=== PATIENT | male | born 1955 | race Asian ===

== ENCOUNTER 2020-04-03 16:01 | Inpatient (IN) | payer OTHER, SELFPAY ==
[~2020-04-03] VITALS: Ht 172.7 cm; Wt 88.5 kg
[2020-04-03 16:01] VITALS: BP_SYST 125
--- NOTE | 2020-04-03 16:06 | NUR ---
Patient triaged and placed in Surge Tent. VSS and patient appears in no acute distress at this time. Awaiting available bed, and MD notified of need for MSE.
--- NOTE | 2020-04-03 16:07 | NUR ---
Patient came from home for evaluation of COVID-19 symptoms. Patient reports that his niece tested positive 2 weeks ago and has been hospitalized. He is complaining of loss of taste & smell, fever, labored breathing, and diarrhea since last .
--- NOTE | 2020-04-03 16:38 | NUR ---
Patient to ER bed 5 to gown for evaluation. Side rails up. Report given to LUIS MIGUEL Hannah.
--- NOTE | 2020-04-03 16:57 | NUR ---
RT at bedside for ABG
[2020-04-03] MEDS ORDERED: LORazepam 2 MG/ML VIAL IVP ONE (17:00)
--- NOTE | 2020-04-03 17:00 | NUR ---
# 20 gauge angiocath placed to RFA. Use of asceptic technique. Opsite placed over site. Blood return noted. Blood for lab drawn from site. Flushed with 10 cc of normal saline. No evidence of infiltration noted. Patient tolerated well.
--- NOTE | 2020-04-03 17:10 | NUR ---
Covid swab performed.
--- NOTE | 2020-04-03 17:13 | NUR ---
EKG performed at by LUIS MIGUEL Hannah. Physician given copy of EKG for review.
--- NOTE | 2020-04-03 17:27 | NUR ---
ocular care technologist at bedside for chest xray
[2020-04-03 18:21] LABS: BASOPHILS % (AUTO) 0.2 % (0.0-2.0); HEMATOCRIT 38.5 % (36-54); LYMPHOCYTES % (AUTO) 21.9 % (20.5-51.5); MEAN CORPUSCULAR HEMOGLOBIN 24 pg (27-31); MEAN CORPUSCULAR HGB CONC 31 % (32-36); MEAN CORPUSCULAR VOLUME 76 fL (79.0-98.0); MONOCYTES # (AUTO) 0.3 K/uL (0.0-1.0); MONOCYTES % (AUTO) 7.5 % (1.7-9.3); NEUTROPHILS # (AUTO) 3.2 K/uL (1.8-7.7); NEUTROPHILS % (AUTO) 70.4 % (40.0-70.0); PLATELET COUNT (AUTO) 79 K/uL (130-430); RED BLOOD CELL COUNT(AUTO) 5.06 MIL/uL (4.2-6.2); RED CELL DISTRIBUTION WIDTH 13.7 % (9.0-15.0); WHITE BLOOD COUNT (AUTO) 4.6 K/uL (4.8-10.8)
[2020-04-03 18:27] LABS: CALCIUM 8.3 mg/dL (8.4-11.0); CREATININE 1.84 mg/dL (0.55-1.30)
[2020-04-03] MEDS ORDERED: ACETAMINOPHEN 500 MG TABLET PO ONE (18:30)
[2020-04-03 18:31] LABS: ALBUMIN 3.3 g/dL (3.4-4.8); C-REACTIVE PROTEIN QUANT 7.6 mg/dL (0-0.5); TOTAL BILIRUBIN 0.5 mg/dL (0.0-1.0)
[2020-04-03 18:37] LABS: PROTHROMBIN TIME 9.6 SECS (9.5-12.5)
--- NOTE | 2020-04-03 18:54 | NUR ---
medicated with Tylenol 1 gm for temperature of 101.3
[2020-04-03] MEDS ORDERED: LIP40 PO (19:07)
[2020-04-03] MEDS ORDERED: BENA40TA8 PO (19:07)
[2020-04-03] MEDS ORDERED: GLU850 PO (19:07)
[2020-04-03] MEDS ORDERED: TAMS-11 PO (19:07)
[2020-04-03] MEDS ORDERED: ASPI-1155 PO (19:07)
[2020-04-03] MEDS ORDERED: LEVO75TA7 PO (19:07)
[2020-04-03] MEDS ORDERED: METO25TA6 PO (19:07)
--- NOTE | 2020-04-03 19:08 | NUR ---
Medication reconciliation completed with information provided by patient. Any prior medication reconciliation on file was reviewed and corrected.
--- NOTE | 2020-04-03 19:18 | NUR ---
report given to LUIS MIGUEL Davis for continuation of care.
[2020-04-03 20:17] LABS: CKMB RELATIVE INDEX 0.2 (0.0-2.9)
--- NOTE | 2020-04-03 21:41 | NUR ---
Patient will be admitted to care of DR. KLEIN. Admitted to TELEMETRY unit. TELEMETRY BED HOLDING Belongings list completed. Complete and up to date summary report printed. SBAR report to be given at bedside with opportunity for questions.
--- NOTE | 2020-04-03 22:50 | NUR ---
VSS no s/s of acute distress Resting on gurney rails up
[2020-04-03] MEDS ORDERED: ACETAMINOPHEN 325 MG TABLET PO PRN (23:45)
[2020-04-03] MEDS ORDERED: AZITHROMYCIN 500 MG in NS 250 ML IV SCH (23:45)
[2020-04-03] MEDS ORDERED: HYDROcodone/ACETAMIN 5-325 MG TAB (NORCO/ VICODIN) PO PRN (23:45)
--- NOTE | 2020-04-04 | NUR ---
Pt's family inquiring about pt latest info, Bonifacio went to see pt at bedside
--- NOTE | 2020-04-04 01:00 | NUR ---
VSS no s/s of acute distress Resting on gurney rails up
--- NOTE | 2020-04-04 02:00 | NUR ---
IV medications well tolerated
[2020-04-04] MEDS ORDERED: AZITHROMYCIN 500 MG/VIAL (ZITHROMAX) IV ONE (02:10)
[2020-04-04] MEDS ORDERED: cefTRIAXone 2 GM VIAL ONE (02:10)
--- NOTE | 2020-04-04 02:40 | NUR ---
ADMIT NOTE Received pt from ER to the floor with a diagnosis of covid pna. Admission process initiated. patient oriented to pain management, safety and call light-teach back done.
--- NOTE | 2020-04-04 02:40 | NUR ---
Patient will be admitted to care of Dr. Valdovinos. Admitted to Tele unit. Will go to room 122B. Belongings list completed. Complete and up to date summary report printed. SBAR report to be given at bedside with opportunity for questions.
--- NOTE | 2020-04-04 02:40 | NUR ---
Transfer to Tele via ACLS protocol. Licensed nurse present. IV present no signs or symptoms of infiltration.
[2020-04-04 03:13] VITALS: BP_SYST 129
--- NOTE | 2020-04-04 03:59 | NUR ---
initial notes: awake, alert,oriented x 4. no pain, no distress, vital sign with in normal limit, pt has dry cough and crackles through out the lungs, iv lock to right forearm gauge 20- patent and intact. orient to room and safety, explain plan of care. pt verbalized understanding, call light tin reach, bed low and lock position side rails up x 2. will monitor.
--- NOTE | 2020-04-04 05:54 | NUR ---
pt is still awake, alert, watching on his cellphone, stable. no acute distress. will monitor.
[2020-04-04] MEDS: INSULIN REGULAR, HUMAN 100 UNITS/ML, 10 ML VIAL (humuLIN R) SUBCUT PRN ×3 (06:22→20:45)
--- NOTE | 2020-04-04 07:05 | NUR ---
closing: pt is awake, alert, no complain of pain,no sob. stable. covid isolation. will give sbar report to am rn.
[2020-04-04 07:15] LABS: BASOPHILS % (AUTO) 0.2 % (0.0-2.0); EOSINOPHILS % (AUTO) 0.2 % (0.0-4.0); HEMOGLOBIN 11.9 g/dL (14.0-18.0); LYMPHOCYTES # (AUTO) 1.1 K/uL (1.0-5.5); LYMPHOCYTES % (AUTO) 20.9 % (20.5-51.5); MEAN CORPUSCULAR HEMOGLOBIN 24 pg (27-31); MEAN CORPUSCULAR HGB CONC 31 % (32-36); MEAN CORPUSCULAR VOLUME 77 fL (79.0-98.0); MONOCYTES # (AUTO) 0.4 K/uL (0.0-1.0); MONOCYTES % (AUTO) 7.4 % (1.7-9.3); NEUTROPHILS # (AUTO) 3.6 K/uL (1.8-7.7); NEUTROPHILS % (AUTO) 71.3 % (40.0-70.0); PLATELET COUNT (AUTO) 83 K/uL (130-430); RED BLOOD CELL COUNT(AUTO) 4.94 MIL/uL (4.2-6.2); RED CELL DISTRIBUTION WIDTH 13.4 % (9.0-15.0)
--- NOTE | 2020-04-04 07:15 | NUR ---
OPENING NOTES PT AWAKE, ALERT, AND ORIENTED. NONLABORED BREATHING NOTED, RECEIVING OXYGEN AT 2LPM VIA NASAL CANNULA, TOLERATING WELL, O2 AT 94%. IV LINE INTACT AND PATENT, NO SIGNS OF INFILTRATION NOTED. NO ACUTE DISTRESS NOTED. BED LOCKED AND IN LOWEST POSITION. ALL NEEDS MET. CALL LIGHT IN REACH. FALL, ASPIRATION, AND ISOLATION PRECAUTIONS IN PLACE. CONTINUE TO MONITOR.
[2020-04-04 07:37] LABS: CALCIUM 8.4 mg/dL (8.4-11.0); CREATININE 1.71 mg/dL (0.55-1.30); POTASSIUM 4.4 mmol/L (3.5-5.1); TOTAL BILIRUBIN 0.3 mg/dL (0.0-1.0)
[2020-04-04 08:00] VITALS: BP_SYST 143
[2020-04-04] MEDS: TAMSULOSIN HCL 0.4 MG CAP PO SCH (08:45)
[2020-04-04] MEDS: ATORVASTATIN 20 MG TABLET PO SCH (08:45)
[2020-04-04] MEDS: ASPIRIN 81 MG TAB.CHEW PO SCH (08:45)
[2020-04-04] MEDS: METOPROLOL TARTRATE 25 MG TABLET PO SCH ×2 (08:46→21:00)
[2020-04-04] MEDS: LISINOPRIL 20 MG TABLET PO SCH (08:46)
[2020-04-04] MEDS: LEVOTHYROXINE SODIUM 0.075 MG TABLET PO SCH (08:46)
--- NOTE | 2020-04-04 08:46 | NUR ---
ROUTINE MEDS ROUTINE MEDS ADMINISTERED ORDERED PER MD, EDUCATION GIVEN, PT VERBALIZED UNDERSTANDING, TOLERATED WELL. NO ACUTE DISTRESS NOTED. ALL NEEDS MET. CALL LIGHT IN REACH. CONTINUE TO MONITOR.
[2020-04-04] MEDS ORDERED: ENOXAPARIN SODIUM 40 MG/0.4 ML SYRINGE SUBCUT SCH (09:00)
--- NOTE | 2020-04-04 09:58 | NUR ---
paged Dr. Burciaga (need to inform of SOB consult)
--- NOTE | 2020-04-04 10:07 | NUR ---
SPOKE TO DR. WHITE, RECEIVED ORDERS, VERIFIED, AND CARRIED OUT.
[2020-04-04] MEDS: DEXAMETHASONE SOD PHOSPHATE 10 MG/ML VIAL IVP SCH (12:30)
--- NOTE | 2020-04-04 12:30 | NUR ---
ACCUCHECK DONE AND ROUTINE MEDS GIVEN. ACCUCHECK, NO INSULIN COVERAGE NEEDED PER SLIDING SCALE. ROUTINE MEDS ADMINISTERED ORDERED PER MD, EDUCATION GIVEN, PT VERBALIZED UNDERSTANDING, TOLERATED WELL. PER DR. WHITE, EDUCATED PT ON INCENTIVE SPIROMETER AND SELF-PRONING, PT VERBALIZED UNDERSTANDING AND REPEATED THE INSTRUCTIONS. NO ACUTE DISTRESS NOTED. ALL NEEDS MET. CALL LIGHT IN REACH. CONTINUE TO MONITOR.
--- NOTE | 2020-04-04 12:30 | NUR ---
Spoke w/ Pawel at [facility] [phone] will attempt to transfer pt to [facility] Dr Knott will be accepting MD. Dr Barksdale gave order for transfer to [facility] when Bed available.
[2020-04-04 12:35] VITALS: BP_SYST 107
--- NOTE | 2020-04-04 13:11 | NUR ---
ID consult called: for Dr. Andrade, regarding rule out covid, ordered by Dr. Barksadle, spoke with Deepak.
--- NOTE | 2020-04-04 14:10 | NUR ---
ROUTINE ABX ADMINISTERED ORDERED PER MD, EDUCATION GIVEN, PT VERBALIZED UNDERSTANDING OF MEDICATION, TOLERATED WELL. PT TOOK OFF HIS NASAL CANNULA FOR ABOUT AN HOUR, CHECKED O2, O2 DROPPED TO 84%, PUT NASAL CANNULA ON AT 2LPM, O2 WENT BACK UP TO 94%. CONTINUE TO MONITOR.
[2020-04-04] MEDS ORDERED: AZITHROMYCIN 500 MG in NS 250 ML IV SCH (15:00)
--- NOTE | 2020-04-04 15:30 | NUR ---
RT NOTES Per RN, pt did not tolerate being on room air, saturation only 84%, RN placed pt back on 2L o2.
[2020-04-04 16:00] VITALS: BP_SYST 116
--- NOTE | 2020-04-04 19:00 | NUR ---
CLOSING NOTES PT AWAKE, ALERT, AND ORIENTED, LYING IN BED. PT DENIES PAIN AND SOB AT THIS TIME. NONLABORED BREATHING NOTED, RECEIVING OXYGEN AT 2LPM VIA NASAL CANNULA, TOLERATING WELL. NO ACUTE DISTRESS NOTED. IV LINE INTACT AND PATENT, NO SIGNS OF INFILTRATION NOTED. BED LOCKED AND IN LOWEST POSITION. ALL NEEDS MET. CALL LIGHT IN REACH. FALL AND ASPIRATION AND ISOLATION PRECAUTIONS IN PLACE. WILL ENDORSE TO LUIS MIGUEL DOE.
--- NOTE | 2020-04-04 19:15 | NUR ---
OPENING NOTE: Patient awake at this time, AOx4. No s/s of acute distress noted. Patient attached to 2L NC and tolerating well. Breathing is even and unlabored. IV site is patent without redness or infiltration. Bed is locked in lowest position, call light with patient. Patient educated on importance and use of call light. Patient verbalized understanding and demonstrated proper use. Bed alarm not indicated as patient is ambulatory with a steady gait. No further needs. Will continue to monitor.
[2020-04-04 20:00] VITALS: BP_SYST 106
--- NOTE | 2020-04-04 21:13 | NUR ---
COMPLAINTS OF PAIN TO IV SITE: IV site no longer patient and patient with complaints of pain. IV removed with catheter fully intact. No active bleeding noted. Patient tolerated well. Per patient request, IV attempt be done in the morning so he can rest without worrying about being uncomfortable. Patient is not on any fluids nor has any IV abx. during my shift. Will attempt in the morning. Bed locked in lowest position, call light with patient. No further needs at this time. Will continue to monitor.
--- NOTE | 2020-04-04 23:40 | NUR ---
SNACKS PROVIDED: Snacks provided to patient at this time. No further needs at this time. Bed locked in lowest position, call light with patient. Will continue to monitor.
[2020-04-05] VITALS: BP_SYST 110
--- NOTE | 2020-04-05 01:39 | NUR ---
ROUNDS: Patient is resting at this time. No s/s of acute distress noted. Breathing is even and unlabored. All safety measures in place. No further needs. Will continue to monitor.
[2020-04-05 04:00] VITALS: BP_SYST 96
--- NOTE | 2020-04-05 05:17 | NUR ---
IV RE-INSERTION: IV started on left hand. Successful after 2 attempts. Will observe for any signs of infiltration. Patient tolerated well.
[2020-04-05] MEDS: INSULIN REGULAR, HUMAN 100 UNITS/ML, 10 ML VIAL (humuLIN R) SUBCUT PRN ×2 (06:00→12:00)
--- NOTE | 2020-04-05 06:30 | NUR ---
CLOSING NOTE: Patient awake at this time, AOx4. No s/s of acute distress noted. Patient attached to 2L NC and tolerating well. Breathing is even and unlabored. IV site is patent without redness or infiltration. All safety/isolation precautions maintained throughout the shift. All needs met throughout the shift. Will continue to monitor until endorsement of care to dayshift nurse.
--- NOTE | 2020-04-05 07:30 | NUR ---
Opening Notes Patient is awake, alert and oriented x4. No resp distress noted. Breathing is even and unlabored. Patient remains on continuous oxygen @ 2 LPM, tolerated well, saturating @ 95%. Patient denies any pain at this time. Patient is ambulatory, steady gait. IV site on left 22 gauge, intact, saline lock. Patient is also noted with a cough, productive. All needs met at this time. Call light within reach. Bed in lowest position, locked. Will continue to monitor.
[2020-04-05 08:00] VITALS: BP_SYST 107
[2020-04-05] MEDS: LISINOPRIL 20 MG TABLET PO SCH (09:00)
[2020-04-05] MEDS: METOPROLOL TARTRATE 25 MG TABLET PO SCH (09:00)
--- NOTE | 2020-04-05 09:10 | NUR ---
Medication Pass/Hold BP Meds All due meds rendered. Patients blood pressure medication was held d/t BP @ 107/66, HR 53. Held Lopressor and Lisinopril. Educated patient of effects of BP medicine and reason they were held. Aware and agreed.
[2020-04-05] MEDS: ATORVASTATIN 20 MG TABLET PO SCH (09:17)
[2020-04-05] MEDS: ASPIRIN 81 MG TAB.CHEW PO SCH (09:17)
[2020-04-05] MEDS: TAMSULOSIN HCL 0.4 MG CAP PO SCH (09:17)
[2020-04-05] MEDS: LEVOTHYROXINE SODIUM 0.075 MG TABLET PO SCH (09:18)
--- NOTE | 2020-04-05 09:55 | NUR ---
CRITICAL LAB: COVID POSITIVE Lab called and informed nurse that patient is positive for COVID. Notified Dr. Moy who was on the floor. Obtained new orders to DC home for self isolation with prescribed meds if okay with Dr. Barksdale. Will page Dr. Barksdale.
--- NOTE | 2020-04-05 10:00 | NUR ---
Notes Patient is resting in his room. No resp distress noted. Breathing is even and unlabored. Patient was instructed to remove his NC to see how he tolerates on RA. Oxygen is noted at 92% on RA. Patient was also downgraded to Med Surg, removed telebox. Patient was also notified that he tested positive for COVID19. Patient is distraught but aware and agreed. Patient denies any pain at this time. All needs met. Call light within reach. Bed in lowest position, locked.
--- NOTE | 2020-04-05 10:30 | NUR ---
Dr. Barksdale called back Dr. Barksdale called back and gave new orders to NOT DC HOME. DC TO [facility] WHEN BED IS AVAILABLE. Noted and carried out. Will continue to monitor.
[2020-04-05] MEDS: DEXAMETHASONE SOD PHOSPHATE 10 MG/ML VIAL IVP SCH (11:30)
--- NOTE | 2020-04-05 11:30 | NUR ---
Blood Sugar Patients blood sugar was noted at 268 mg/dL. Per sliding scale, administered 6 units of regular insulin, tolerated well. Will continue to monitor.
[2020-04-05 12:00] VITALS: BP_SYST 116
--- NOTE | 2020-04-05 12:00 | NUR ---
Notes Patient is awake, alert and oriented x4, eating lunch at this time. No resp distress noted. Breathing is even and unlabored. Patients oxygen saturation level is noted at 92% on RA. Denies any pain at this time. Safety and fall precautions in place. Bed in lowest position, locked. Will continue to monitor.
[2020-04-05] MEDS ORDERED: guaiFENesin/DEXTROMETHORPHAN 118 ML PO PRN (14:00)
--- NOTE | 2020-04-05 14:31 | NUR ---
Notes Patient is resting in his room. No resp distress, breathing is even and unlabored. Denies any pain at this time. All needs met at this time. Safety and fall precautions in place. Bed in lowest position, alarm on, locked. Will continue to monitor.
[2020-04-05 15:58] VITALS: BP_SYST 116
--- NOTE | 2020-04-05 16:00 | NUR ---
Notes Patient is awake, alert and oriented x4. No resp distress noted. Breathing is even and unlabored. Patient c/o SOB earlier and placed his NC back on, saturating at 95% on 2 LPM via NC. Patient denies any pain at this time. Patient is aware of being transferred to [facility]. All needs met at this time. Safety and fall precautions in place. Call light within reach. Bed in lowest position, locked. Will continue to monitor.
--- NOTE | 2020-04-05 16:09 | NUR ---
Pt accepted at [facility] room 202. Number for report [phone]. Ambulance transport by [facility] [phone]. Patient and his Yoselin agreed to transfer to [facility]. Ambulance will transport pt at 5:15 PM, pt notified of warehouse picker time.
--- NOTE | 2020-04-05 17:00 | NUR ---
Report given to LUIS MIGUEL Uribe at [facility]
--- NOTE | 2020-04-05 18:29 | NUR ---
D/C Patient Patient given medication reconciliation form and D/C instructions. Exit Care provided. Patient verbalized understanding. discussed with patient the results and treatment provided. Ambulatory with steady gait for discharge to [facility]. Patient in stable condition, ID band removed. IV catheter kept in place per request of [facility]. Report given to LUIS MIGUEL Uribe at [facility]. Patient educated on pain management. All belongings sent with patient. Patient transferred via S via ambulance.
[2020-04-05] MEDS ORDERED: DOXYCYCLINE HYCLATE 100 MG CAPSULE PO SCH (21:00)
== END 2020-04-05 18:25 | disposition short-term general hospital (02) | DRG 871 ==
LOC: SED 16:01 → STU 21:40 → SMU 04-05 10:58
PROVIDERS: ADMIT Internal Medicine Hospice and Palliative Medicine; ATTEND Internal Medicine Hospice and Palliative Medicine
DX: A41.9 Sepsis, unspecified organism (principal); J96.01 Acute respiratory failure with hypoxia; N17.0 Acute kidney failure with tubular necrosis; U07.1 COVID-19; J12.89 Other viral pneumonia; D69.6 Thrombocytopenia, unspecified; D72.819 Decreased white blood cell count, unspecified; E11.9 Type 2 diabetes mellitus without complications; E78.5 Hyperlipidemia, unspecified; Z20.828 Contact with and (suspected) exposure to other viral communicable diseases; N18.9 Chronic kidney disease, unspecified; I12.9 Hypertensive chronic kidney disease with stage 1 through stage 4 chronic kidney disease, or unspecified chronic kidney disease; R00.1 Bradycardia, unspecified; Z95.1 Presence of aortocoronary bypass graft
CPT/HCPCS: 36415; 36600; 71045; 80053; 82550-TC; 82553-TC; 82728; 82803-TC; 82962; 83605; 83615-TC; 83880; 84484; 85025; 85379; 85384-TC; 85610-TC; 85730-TC; 86140; 87040-TC; 93005; 99291; G0378; J0456; J0696; J1100; J7050; J7060; U0003-CS